=== PATIENT | female | born 1995 ===

== ENCOUNTER 2017-06-01 10:42 | Inpatient (IN) | payer BC ==
[2017-06-01] MEDS ORDERED: Sodium Chloride 0.9% 1,000 ML IV ONE ×2 (11:15→14:35)
[2017-06-01 11:37] LABS: BASO # 0.1 K/uL (0.0-0.2); BASO % 0.3 % (0.0-2.0); EOS # 0.1 K/uL (0.0-0.7); EOS % 0.7 % (0.0-4.0); HEMOGLOBIN 10.4 g/dL (11.0-16.0); LYMPH # 0.9 K/uL (1.0-4.3); MEAN CELL VOLUME 78.2 fL (81.0-99.0); MEAN CORPUSCULAR HEMOGLOBIN 26.4 pg (27.0-31.0); MEAN CORPUSCULAR HGB CONC 33.7 g/dL (33.0-37.0); MEAN PLATELET VOLUME 9.4 fL (7.2-11.7); MONO # 1.1 K/uL (0.0-0.8); NEUT # 19.3 K/uL (1.8-7.0); PLATELET COUNT 253 K/uL (130-400); RBC 3.94 Mil/uL (3.80-5.20); RED CELL DISTRIBUTION WIDTH 16.3 % (11.5-14.5); WHITE BLOOD COUNT 21.5 K/uL (4.8-10.8)
[2017-06-01 11:40] LABS: HCG,QUALITATIVE URINE NEGATIVE (NEGATIVE)
[2017-06-01] MEDS ORDERED: Sodium Chloride 0.9% 1,000 ML ONE ×2 (11:47→14:50)
[2017-06-01 11:53] LABS: ALB/GLOB RATIO 1.2 (1.0-2.1); ALT/SGPT 12 U/L (9-52); AST/SGOT 17 U/L (14-36); BLOOD UREA NITROGEN 8 mg/dL (7-17); CALCIUM 8.5 mg/dl (8.6-10.4); GFR AFRICAN-AMERICAN > 60; GFR NON-AFRICAN AMERICAN > 60; LIPASE 90 U/L (23-300)
[2017-06-01 11:54] LABS: SQUAMOUS EPITHIAL 11 /hpf (0-5); URINE BILIRUBIN NEGATIVE (NEGATIVE); URINE BLOOD NEGATIVE (NEGATIVE); URINE CLARITY Hazy (Clear); URINE COLOR Yellow (YELLOW); URINE GLUCOSE (UA) NORMAL (Normal); URINE LEUKOCYTE ESTERASE NEG Leu/uL (Negative); URINE NITRATE NEGATIVE (NEGATIVE); URINE PROTEIN NEGATIVE (NEGATIVE); URINE UROBILINOGEN NORMAL mg/dL (0.2-1.0)
[2017-06-01 11:57] LABS: ANISOCYTOSIS SLIGHT; BANDS 4 % (0-2); EOSINOPHIL 1 % (0-4); HYPOCHROMIC SLIGHT; LYMPHOCYTE 5 % (20-40); MICROCYTOSIS SLIGHT; MONOCYTE 6 % (0-10); NEUTROPHIL 84 % (50-75); TOTAL CELLS COUNTED 100
[2017-06-01 11:59] LABS: LARGE PLATELETS PRESENT
[2017-06-01 12:31] LABS: PLATELET ESTIMATE NORMAL (NORMAL)
--- NOTE | 2017-06-01 13:11 | C.PDOC ---
History Of Present Illness 30-year-old female, presents to the emergency department with complaints of lower abdominal pain that is associated with non-bloody/non-bilious diarrhea and chills x4 days. Patient notes she was seen in [place] ED three days ago, where she was diagnosed with UTI. Patient denies fevers, back pain, dizziness, nausea/vomiting, or any other associated symptoms. No other complaints at this time. Time Seen by Provider: 06/01/17 11:03 Chief Complaint (Nursing): Abdominal Pain History Per: Patient History/Exam Limitations: no limitations Onset/Duration Of Symptoms: Days Current Symptoms Are (Timing): Still Present Severity: Moderate Past Medical History Reviewed: Historical Data, Nursing Documentation, Vital Signs Vital Signs: Last Vital Signs Temp 98.6 F 06/01/17 18:04 Pulse 101 H 06/01/17 18:04 Resp 18 06/01/17 18:04 BP 102/68 06/01/17 18:04 Pulse Ox 100 06/01/17 18:51 - [facility] Procedures INJECT/INFUSE NEC (08/05/13) Family History: States: No Known Family Hx - Social History Hx Tobacco Use: No Hx Alcohol Use: No Hx Substance Use: Yes (Marijuana weekly last use yesterday) - Immunization History Hx Tetanus Toxoid Vaccination: No Hx Influenza Vaccination: Yes Hx Pneumococcal Vaccination: No Review Of Systems Except As Marked, All Systems Reviewed And Found Negative. Constitutional: Positive for: Chills. Negative for: Fever Cardiovascular: Negative for: Chest Pain Respiratory: Negative for: Shortness of Breath Gastrointestinal: Positive for: Abdominal Pain, Diarrhea. Negative for: Vomiting Genitourinary: Negative for: Dysuria, Frequency, Vaginal Discharge, Vaginal Bleeding Musculoskeletal: Negative for: Back Pain Physical Exam - Physical Exam Appears: Non-toxic, No Acute Distress Skin: Warm, Dry, No Rash Head: Atraumatic, Normacephalic Eye(s): bilateral: Normal Inspection, PERRL, EOMI Nose: Normal Oral Mucosa: Moist Lips: Normal Appearing Neck: Normal ROM, Supple Lymphatic: Normal Exam Chest: Symmetrical, No Tenderness Cardiovascular: Rhythm Regular, No Friction Rub, No Murmur Respiratory: Normal Breath Sounds, No Accessory Muscle Use Gastrointestinal/Abdominal: Bowel Sounds (active), Soft, Tenderness (mild Lower tenderness), No Guarding, No Hernia Back: Normal Inspection, No CVA Tenderness Extremity: Normal ROM, No Swelling Neurological/Psych: Oriented x3, Normal Speech, Normal Motor Gait: Steady ED Course And Treatment - Laboratory Results Result Diagrams: 06/01/17 11:31 06/01/17 11:31 O2 Sat by Pulse Oximetry: 100 (RA) Pulse Ox Interpretation: Normal Medical Decision Making Medical Decision Making: Plan: * CMP, Lipase * CBC * Pepcid, K-Chloride, IVF, Zofran * HCG/UA * CT Abd/Pel * Reassess and Disposition On re-exam, the patient states only mild improvement. but patient developed slight fever. Patient has hypokalemia and dehydration. The case was discussed with Dr. Yi (covering for Dr. Tom Olsen) agrees to admit the patient for colitis. Disposition - Disposition Disposition: HOSPITALIZED Disposition Time: 15:30 Condition: FAIR - Clinical Impression Clinical Impression: Dehydration, Colitis, Diarrhea, Leukocytosis
[2017-06-01] MEDS ORDERED: Iodixanol 320 mg/ml 150 ml Bottle IV ONE (13:23)
--- NOTE | 2017-06-01 15:12 | CT ---
CT abdomen and pelvis History: Diarrhea. Colitis. Comparison: None available. Technique: Multiple contiguous axial images were performed through the abdomen and pelvis with the use of intravenous contrast. Subsequently, sagittal and coronal reformatted images were obtained. This CT exam was performed using one or more of the following dose reduction techniques: Automated exposure control, adjustment of the mA and/or kV according to patient size, and/or use of iterative reconstruction technique. Findings: 8 millimeter nodular density seen at the medial aspect of the right middle lobe. Mild bibasilar atelectasis. No pleural or pericardial effusion. Liver and gallbladder are preserved. Spleen is preserved. Adrenal glands are preserved. Pancreas is preserved. Upper abdominal bowel is preserved. Right kidney: No calculi or hydronephrosis. Left Kidney: No calculi or hydronephrosis. Urinary bladder is preserved. Heterogeneous uterus and endometrium. Small amount of free fluid within the posterior pelvic cul-de-sac. Prominent distended and tortuous rectum and mid to distal sigmoid colon with associated wall thickening and enhancement consistent with a colitis/proctitis. Additional mild colonic wall thickening seen at the level of the distal ascending colon and proximal right transverse colon which may represent a mild colitis. Appendix appears grossly preserved. Few shotty para-aortic and inguinal nodes. Few shotty mesenteric lymph nodes. Degenerative changes in the spine with sclerosis of the bilateral SI joints. Impression: Prominent distended and tortuous rectum and mid to distal sigmoid colon with associated wall thickening and enhancement consistent with a colitis/proctitis. Additional mild colonic wall thickening seen at the level of the distal ascending colon and proximal right transverse colon which may represent a mild colitis. Small amount of free fluid within the posterior pelvic cul-de-sac.
[2017-06-01] MEDS ORDERED: Potassium Chloride 20 mEq ER Tab PO STA (15:42)
[2017-06-01] MEDS ORDERED: Potassium Chloride 20 mEq ER Tab PO ONE (15:55)
[2017-06-01] MEDS ORDERED: Ciprofloxacin 400mg/200ml D5W 400 MG/200 ML BAG IV STA (16:12)
[2017-06-01] MEDS ORDERED: Ciprofloxacin 400mg/200ml D5W 400 MG/200 ML BAG IVPB ONE (17:01)
[2017-06-01] MEDS ORDERED: metroNIDAZOLE IV 500 mg/100 ml 500 MG/100 ML BAG ONE (17:01)
[2017-06-01] MEDS: metroNIDAZOLE IV 500 mg/100 ml 500 MG/100 ML BAG IV SCH (17:06)
--- NOTE | 2017-06-01 19:54 | CP.PCM.HP ---
History of Present Illness - History of Present Illness History of Present Illness: 30-year-old female, presents to the emergency department with complaints of lower abdominal pain that is associated with non-bloody/non-bilious diarrhea and chills x4 days. Patient notes she was seen in [place] ED three days ago, where she was diagnosed with UTI. Patient denies fevers, back pain, dizziness, nausea/vomiting, or any other associated symptoms. CT OF ABDOMEN SHOWS LOWER COLON COLITIS IST WEEK OF MAY . PT HAD SMALL ABSCESS ON INNER THIGH AND WAS SE[place] [facility] [place] RX PO AB 4 TIMES ADAY . SINCE THEN PT HAS DIARRHEA Present on Admission - Present on Admission Any Indicators Present on Admission: No Review of Systems - Constitutional Constitutional: Anorexia, Chills, Malaise - EENT Eyes: absent: As Per HPI, Blind Spots, Blurred Vision, Change in Vision, Decreased Night Vision, Diplopia, Discharge, Dry Eye, Exophthalmos, Floaters, Irritation, Itchy Eyes, Loss of Peripheral Vision, Pain, Photophobia, Requires Corrective Lenses, Sees Flashes, Spots in Vision, Tunnel Vision, Other Visual Disturbances, Loss of Vision, Other Ears: absent: As Per HPI, Decreased Hearing, Ear Discharge, Ear Pain, Tinnitus, Abnormal Hearing, Disequilibrium, Dizziness, Other Nose/Mouth/Throat: absent: As Per HPI, Epistaxis, Nasal Congestion, Nasal Discharge, Nasal Obstruction, Nasal Trauma, Nose Pain, Post Nasal Drip, Sinus Pain, Sinus Pressure, Bleeding Gums, Change in Voice, Dental Pain, Dry Mouth, Dysphagia, Halitosis, Hoarsness, Lip Swelling, Mouth Lesions, Mouth Pain, Odynophagia, Sore Throat, Throat Swelling, Tongue Swelling, Facial Pain, Neck Pain, Neck Mass, Other - Cardiovascular Cardiovascular: absent: As Per HPI, Acrocyanosis, Chest Pain, Chest Pain at Rest , Chest Pain with Activity, Claudication, Diaphoresis, Dyspnea, Dyspnea on Exertion, Edema, Irregular Heart Rhythm, Pain Radiating to Arm/Neck/Jaw, Leg Edema, Leg Ulcers, Lightheadedness, Orthopnea, Palpitations, Paroxysmal Nocturnal Dyspnea, Pedal Edema, Radiating Pain, Rapid Heart Rate, Slow Heart Rate, Syncope, Other - Respiratory Respiratory: absent: As Per HPI, Cough, Dyspnea, Hemoptysis, Dyspnea on Exertion , Wheezing, Snoring, Stridor, Pain on Inspiration, Chest Congestion, Excessive Mucous Production, Change in Mucous Color, Pain with Coughing, Other - Gastrointestinal Gastrointestinal: Diarrhea, Nausea, Vomiting. absent: Coffee Ground Emesis, Constipation, Hematemesis, Hematochezia, Melena, Temesmus - Genitourinary Genitourinary: Dysuria. absent: As Per HPI, Change in Urinary Stream, Difficulty Urinating, Flank Pain, Hematuria, Pyuria, Nocturia, Urinary Incontinence, Urinary Frequency, Urinary Hesitance, Urinary Urgency, Voiding Freq/Small Amts, Freq UTI, Hx Renal/Bladder Calculi, Hx /Renal Surgery, Bladder Distension, Other - Musculoskeletal Musculoskeletal: absent: As Per HPI, Abnormal Gait, Arthralgias, Atrophy, Back Pain, Deformity, Joint Swelling, Limited Range of Motion, Loss of Height, Muscle Cramps, Muscle Weakness, Myalgias, Neck Pain, Numbness, Radiating Pain into Limb, Stiffness, Tingling, Other - Neurological Neurological: absent: As Per HPI, Abnormal Gait, Abnormal Hearing, Abnormal Movements, Abnormal Speech, Behavioral Changes, Burning Sensations, Confusion, Convulsions, Disequilibrium, Dizziness, Numbness, Focal Weakness, Frequent Falls , Headaches, Lack of Coordination, Loss of Vision, Memory Loss, Paresthesias, Radicular Pain, Restless Legs, Sensory Deficit, Syncope, Tingling, Tremor, Vertigo, Weakness, Other Visual Disturbances, Other - Hematologic/Lymphatic Hematologic: absent: As Per HPI, Easy Bleeding, Easy Bruising, Lymphadenopathy, Other Past Patient History - Past Social History Smoking Status: Never Smoked - MUSCULOSKELETAL/RHEUMATOLOGICAL Hx Falls: No - GASTROINTESTINAL Hx Colitis: Yes Hx Diarrhea: Yes - GENITOURINARY/GYNECOLOGICAL Hx Urinary Tract Infection: Yes - PSYCHIATRIC Hx Substance Use: No - SURGICAL HISTORY Hx Surgeries: No - ANESTHESIA Hx Anesthesia: No Hx Anesthesia Reactions: No Hx Malignant Hyperthermia: No Has any member of the family had a problem w/ anesthesia?: No Meds Allergies/Adverse Reactions: Allergies Allergy/AdvReac Type Severity Reaction Status Date / Time No Known Allergies Allergy Verified 06/01/17 10:47 Physical Exam - Head Exam Head Exam: ATRAUMATIC - Eye Exam Eye Exam: EOMI, Normal appearance, PERRL - ENT Exam ENT Exam: Mucous Membranes Moist, Normal Exam - Neck Exam Neck exam: Positive for: Normal Inspection - Respiratory Exam Respiratory Exam: Clear to Auscultation Bilateral, NORMAL BREATHING PATTERN - Cardiovascular Exam Cardiovascular Exam: REGULAR RHYTHM - GI/Abdominal Exam GI & Abdominal Exam: Hyperactive Bowel Sounds, Soft. absent: Firm, Guarding, Tenderness Results - Vital Signs Recent Vital Signs: Last Vital Signs Temp 98.6 F 06/01/17 18:04 Pulse 101 H 06/01/17 18:04 Resp 18 06/01/17 18:04 BP 102/68 06/01/17 18:04 Pulse Ox 98 06/01/17 19:11 - Labs Result Diagrams: 06/02/17 08:16 06/02/17 08:16 Labs: Laboratory Results - last 24 hr 06/01/17 06/01/17 06/01/17 11:31 11:31 11:31 WBC 21.5 H RBC 3.94 Hgb 10.4 L Hct 30.8 L MCV 78.2 L MCH 26.4 L MCHC 33.7 RDW 16.3 H Plt Count 253 MPV 9.4 Neut % (Auto) 90.0 H Lymph % (Auto) 4.0 L [place] % (Auto) 5.0 Eos % (Auto) 0.7 Baso % (Auto) 0.3 Neut # 19.3 H Lymph # 0.9 L [place] # 1.1 H Eos # 0.1 Baso # 0.1 Neutrophils % (Manual) 84 H Band Neutrophils % 4 H Lymphocytes % (Manual) 5 L Monocytes % (Manual) 6 Eosinophils % (Manual) 1 Platelet Estimate Normal Large Platelets Present Hypochromasia (manual) Slight Anisocytosis (manual) Slight Microcytosis (manual) Slight Sodium 134 Potassium 2.7 L Chloride 101 Carbon Dioxide 23 Anion Gap 13 BUN 8 Creatinine 0.7 Est GFR ( Amer) > 60 Est GFR (Non-Af Amer) > 60 Random Glucose 142 H Calcium 8.5 L Total Bilirubin 0.5 AST 17 ALT 12 Alkaline Phosphatase 54 Total Protein 7.2 Albumin 4.0 Globulin 3.2 Albumin/Globulin Ratio 1.2 Lipase 90 Urine Color Yellow Urine Clarity Hazy Urine pH 5.0 Ur Specific [place] 1.024 Urine Protein Negative Urine Glucose (UA) Normal Urine Ketones Trace Urine Blood Negative Urine Nitrate Negative Urine Bilirubin Negative Urine Urobilinogen Normal Ur Leukocyte Esterase Neg Urine WBC (Auto) 5 Urine RBC (Auto) 3 Ur Squamous Epith Cells 11 H Urine HCG, Qual Negative Assessment & Plan (1) C. difficile colitis Status: Acute Comment: RECENT INGESTION OAB FOR UTI. CHECK C. DIFF (2) Dehydration Status: Acute (3) Diarrhea Status: Acute
--- NOTE | 2017-06-01 20:33 | CP.PCM.CON ---
History of Present Illness - History of Present Illness History of Present Illness: INFECTIOUS DISEASE CONSULT; HPI; 30-year-old female, presents to the emergency department with complaints of lower abdominal pain that is associated with non-bloody/non-bilious diarrhea and chills x4 days. Patient notes she was seen in [place] ED three days ago, where she was diagnosed with UTI AND GIVEN PYRIDIUM FOR 2 DAYS BUT SHE WAS UNABLE TO TOLERATE IT AND STOPPED TAKING IT. PATIENT DENIES ANY FEVERS BUT COMPLAINS OF CHILLS THIS A.M.AND WAS FOUND TO HAVE A TEMPERATURE OF 100. PATIENT DENIES BACK PAIN, DIZZINESS, NAUSEA/ VOMITING OR ANY ASSOCIATED SYMPTOMS. PATIENT ADMITS TO 2-3 LOOSE BMS.PATIENT DENIES ANY DYSURIA, FREQUENCY OR HEMATURIA. DENIES HISTORY OF KIDNEY STONES OR RECURRENT UTIS. PATIENT ALSO DENIES ANY VAGINAL DISCHARGE AND STATES HER PERIODS ARE REGULAR. CT OF ABDOMEN SHOWS DISTAL ASCENDING COLON/PROXIMAL RIGHT TRANSVERSE COLON COLITIS-WITH DISTENDING TORTUOUS RECTUM AND DISTAL SIGMOID COLON WITH WALL THICKENING AND ENHANCEMENT CONSISTENT WITH COLITIS/ PROCTITIS PATIENT ALSO GIVES HISTORY OF AN ABSCESS ON THE LEG FOR WHICH SHE WAS TREATED WITH A COURSE OF ANTIBIOTICS IN MAY 2017. SINCE THEN SHE HAS BEEN HAVING INTERMITTENT DIARRHEA. PATIENT ALSO HAS A CHILD 2 YEARS OLD WHICH RECENTLY HAD UPPER RESPIRATORY TRACT INFECTION. PAST MEDICAL HISTORY; UNREMARKABLE. Family History: States: No Known Family Hx - Social History PATIENT WORKS IN THE [employer] AND LIVES WITH HER BOYFRIEND WHO IS HEALTHY. Hx Tobacco Use: No Hx Alcohol Use: No Hx Substance Use: Yes (Marijuana weekly last use yesterday) - Immunization History Hx Tetanus Toxoid Vaccination: No Hx Influenza Vaccination: Yes Hx Pneumococcal Vaccination: No ALLERGY; NKA Review of Systems - Constitutional Constitutional: Chills, Fever - EENT Eyes: absent: Change in Vision, Floaters Nose/Mouth/Throat: absent: Nasal Congestion, Dry Mouth - Cardiovascular Cardiovascular: absent: Chest Pain, Dyspnea - Respiratory Respiratory: absent: Cough - Gastrointestinal Gastrointestinal: Abdominal Pain, Diarrhea. absent: Melena, Nausea, Vomiting - Genitourinary Genitourinary: absent: Dysuria, Hematuria, Pyuria, Freq UTI - Reproductive: Female Reproductive:Female: absent: Pelvic Pain, Vaginal Discharge, Vaginal Odor, Vaginal Pruritis - Neurological Neurological: absent: Dizziness, Headaches - Hematologic/Lymphatic Hematologic: As Per HPI. absent: Lymphadenopathy Past Patient History - Past Social History Smoking Status: Never Smoked - MUSCULOSKELETAL/RHEUMATOLOGICAL Hx Falls: No - GASTROINTESTINAL Hx Colitis: Yes Hx Diarrhea: Yes - GENITOURINARY/GYNECOLOGICAL Hx Urinary Tract Infection: Yes - PSYCHIATRIC Hx Substance Use: No - SURGICAL HISTORY Hx Surgeries: No - ANESTHESIA Hx Anesthesia: No Hx Anesthesia Reactions: No Hx Malignant Hyperthermia: No Has any member of the family had a problem w/ anesthesia?: No Meds Allergies/Adverse Reactions: Allergies Allergy/AdvReac Type Severity Reaction Status Date / Time No Known Allergies Allergy Verified 06/01/17 10:47 - Medications Medications: Current Medications Metronidazole (Flagyl) 500 mg in 100 mls @ 100 mls/hr IV STAT [facility] Last Admin: 06/01/17 17:06 Dose: 100 mls/hr Dextrose/Sodium Chloride (Dextrose 5%/0.45% Ns 1000 Ml) 1,000 mls @ 100 mls/hr IV .Q10H [facility] Pneumococcal Polyvalent Vaccine (Pneumovax 23 Vaccine) 0.5 ml IM .ONCE ONE Stop: 06/03/17 10:01 Physical Exam - Head Exam Head Exam: NORMAL INSPECTION - Eye Exam Eye Exam: EOMI, PERRL - ENT Exam ENT Exam: Mucous Membranes Moist - Neck Exam Neck exam: Positive for: Normal Inspection - Respiratory Exam Respiratory Exam: Clear to Auscultation Bilateral - Cardiovascular Exam Cardiovascular Exam: Tachycardia, REGULAR RHYTHM, +S1, +S2 - GI/Abdominal Exam GI & Abdominal Exam: Normal Bowel Sounds, Soft. absent: Tenderness (MILD DISCOMFORT LEFT LOWER QUADRANT.) - Extremities Exam Extremities exam: Positive for: pedal pulses present. Negative for: calf tenderness, pedal edema - Neurological Exam Neurological exam: Alert, CN II-XII Intact, Oriented x3, Reflexes Normal - Psychiatric Exam Psychiatric exam: Normal Mood - Skin Skin Exam: Normal Color, Warm Results - Vital Signs Recent Vital Signs: Last Vital Signs Temp 98.6 F 06/01/17 18:04 Pulse 101 H 06/01/17 18:04 Resp 18 06/01/17 18:04 BP 102/68 06/01/17 18:04 Pulse Ox 98 06/01/17 19:11 - Labs Result Diagrams: 06/01/17 11:31 06/01/17 11:31 Labs: Laboratory Results - last 24 hr 06/01/17 06/01/17 06/01/17 11:31 11:31 11:31 WBC 21.5 H RBC 3.94 Hgb 10.4 L Hct 30.8 L MCV 78.2 L MCH 26.4 L MCHC 33.7 RDW 16.3 H Plt Count 253 MPV 9.4 Neut % (Auto) 90.0 H Lymph % (Auto) 4.0 L [place] % (Auto) 5.0 Eos % (Auto) 0.7 Baso % (Auto) 0.3 Neut # 19.3 H Lymph # 0.9 L [place] # 1.1 H Eos # 0.1 Baso # 0.1 Neutrophils % (Manual) 84 H Band Neutrophils % 4 H Lymphocytes % (Manual) 5 L Monocytes % (Manual) 6 Eosinophils % (Manual) 1 Platelet Estimate Normal Large Platelets Present Hypochromasia (manual) Slight Anisocytosis (manual) Slight Microcytosis (manual) Slight Sodium 134 Potassium 2.7 L Chloride 101 Carbon Dioxide 23 Anion Gap 13 BUN 8 Creatinine 0.7 Est GFR ( Amer) > 60 Est GFR (Non-Af Amer) > 60 Random Glucose 142 H Calcium 8.5 L Total Bilirubin 0.5 AST 17 ALT 12 Alkaline Phosphatase 54 Total Protein 7.2 Albumin 4.0 Globulin 3.2 Albumin/Globulin Ratio 1.2 Lipase 90 Urine Color Yellow Urine Clarity Hazy Urine pH 5.0 Ur Specific [place] 1.024 Urine Protein Negative Urine Glucose (UA) Normal Urine Ketones Trace Urine Blood Negative Urine Nitrate Negative Urine Bilirubin Negative Urine Urobilinogen Normal Ur Leukocyte Esterase Neg Urine WBC (Auto) 5 Urine RBC (Auto) 3 Ur Squamous Epith Cells 11 H Urine HCG, Qual Negative - Imaging and Cardiology CT scan - abdomen AND PELVIS AND CHEST WITH iv CONTRAST Additional comment: SEE FULL REPORT. Assessment & Plan (1) Diarrhea Status: Acute (2) Colitis Status: Acute (3) Dehydration Status: Acute (4) Leukocytosis Status: Acute - Assessment and Plan (Free Text) Plan: PLAN; PANCULTURES STOOL FOR C. DIFFICILE TOXIN A AND B. STOOLS FOR CULTURE STOOLS FOR GIARDIA ANTIGEN STOOLS FOR CRYPTOSPORIDIOSIS. HIV 1 AND 2 ANTIBODY SCREEN. STOOLS FOR OVA AND PARASITES X2. CONTINUE iv fLAGYL 500 MG EVERY 8 HOURLY .06/01/17. ADD PO VANCOMYCIN 250 MG BY MOUTH 4 TIMES A DAY. ENTERIC /CONTACT PRECAUTIONS. WILL FOLLOW ALONG WITH YOU AND MAKE RECOMMENDATIONS NECESSARY.
[2017-06-01] MEDS: Dextrose 5%/0.45% NS 1,000 ML IV SCH (20:40)
[2017-06-02] MEDS: metroNIDAZOLE IV 500 mg/100 ml 500 MG/100 ML BAG IV SCH (05:45)
[2017-06-02] MEDS: Dextrose 5%/0.45% NS 1,000 ML IV SCH (05:49)
[2017-06-02] MEDS: metroNIDAZOLE IV 500 mg/100 ml 500 MG/100 ML BAG IVPB SCH ×3 (05:50→21:22)
[2017-06-02 08:25] LABS: BASO % 0.4 % (0.0-2.0); EOS # 0.3 K/uL (0.0-0.7); EOS % 2.9 % (0.0-4.0); HEMOGLOBIN 9.5 g/dL (11.0-16.0); LYMPH # 1.3 K/uL (1.0-4.3); LYMPH % 14.7 % (20.0-40.0); MEAN CELL VOLUME 78.8 fL (81.0-99.0); MEAN CORPUSCULAR HEMOGLOBIN 26.2 pg (27.0-31.0); MEAN CORPUSCULAR HGB CONC 33.3 g/dL (33.0-37.0); MEAN PLATELET VOLUME 9.7 fL (7.2-11.7); MONO # 0.7 K/uL (0.0-0.8); MONO % 7.3 % (0.0-10.0); NEUT # 6.8 K/uL (1.8-7.0); NEUT % 74.7 % (50.0-75.0); RBC 3.63 Mil/uL (3.80-5.20); RED CELL DISTRIBUTION WIDTH 15.9 % (11.5-14.5)
[2017-06-02 08:32] LABS: WHITE BLOOD COUNT 9.1 K/uL (4.8-10.8)
[2017-06-02 08:47] LABS: ALB/GLOB RATIO 1.1 (1.0-2.1); ALBUMIN 3.1 g/dL (3.5-5.0); ALT/SGPT 19 U/L (9-52); AST/SGOT 17 U/L (14-36); BLOOD UREA NITROGEN 2 mg/dL (7-17); CALCIUM 7.6 mg/dl (8.6-10.4); GFR AFRICAN-AMERICAN > 60; GFR NON-AFRICAN AMERICAN > 60
[2017-06-02] MEDS: Vancomycin 125 MG/5 ML SOLN (ORAL/RECTAL) PO SCH ×4 (09:36→21:22)
[2017-06-02] MEDS: Potassium Chl 40 mEq in D5-1/2 1,000 ML IV SCH ×2 (10:59→21:23)
--- NOTE | 2017-06-02 14:53 | CP.PCM.PN ---
Subjective - Date & Time of Evaluation Date of Evaluation: 06/02/17 Time of Evaluation: 14:51 - Subjective Subjective: AFEBRILE C. DIFF POS ON PO VANCO+ IV FLAGYL K LOW 2.8 , NO IV K WAS GIVEN INSPITE OF ORDERS LAST NITE D/W MOTHER IN DETAIL Objective - Vital Signs/Intake and Output Vital Signs (last 24 hours): Temp Pulse Resp BP Pulse Ox 97.8 F 88 20 111/75 96 06/02/17 09:00 06/02/17 09:00 06/02/17 09:00 06/02/17 09:00 06/02/17 09:00 Intake and Output: 06/02/17 06/02/17 11:59 23:59 Intake Total 900 Balance 900 - Medications Medications: Current Medications Metronidazole (Flagyl) 500 mg in 100 mls @ 100 mls/hr IVPB Q8 [facility] Last Admin: 06/02/17 14:19 Dose: 100 mls/hr Potassium Chloride/Dextrose/Sod Cl (Potassium Chl 40 Meq In D5-1/2ns) 1,000 mls @ 100 mls/hr IV .Q10H [facility] Last Admin: 06/02/17 10:59 Dose: 100 mls/hr Pneumococcal Polyvalent Vaccine (Pneumovax 23 Vaccine) 0.5 ml IM .ONCE ONE Stop: 06/03/17 10:01 Vancomycin HCl (Vancocin (Oral Or Rectal Use)) 250 mg PO QID [facility] Last Admin: 06/02/17 14:19 Dose: 250 mg - Labs Labs: 06/02/17 08:16 06/02/17 08:16 Assessment and Plan (1) C. difficile colitis Status: Acute (2) Dehydration Status: Acute (3) Diarrhea Status: Acute
--- NOTE | 2017-06-02 22:16 | CP.PCM.PN ---
Subjective - Date & Time of Evaluation Date of Evaluation: 06/02/17 Time of Evaluation: 22:16 - Subjective Subjective: tmax 100, vs as noted . awake alert, Still has diarrhea labs reviewed Improving leukocytosis. STOOL C . DIFFICILE POSITIVE STOOLS POSITIVE FOR blood STOOLS POSITIVE FOR LEUKOCYTES. Objective - Vital Signs/Intake and Output Vital Signs (last 24 hours): Temp Pulse Resp BP Pulse Ox 97.1 F L 68 20 111/72 100 06/02/17 16:00 06/02/17 16:00 06/02/17 16:00 06/02/17 16:00 06/02/17 16:00 Intake and Output: 06/02/17 06/03/17 18:59 06:59 Intake Total 1280 Balance 1280 - Medications Medications: Current Medications Metronidazole (Flagyl) 500 mg in 100 mls @ 100 mls/hr IVPB Q8 [facility] Last Admin: 06/02/17 21:22 Dose: 100 mls/hr Potassium Chloride/Dextrose/Sod Cl (Potassium Chl 40 Meq In D5-1/2ns) 1,000 mls @ 100 mls/hr IV .Q10H [facility] Last Admin: 06/02/17 21:23 Dose: 100 mls/hr Pneumococcal Polyvalent Vaccine (Pneumovax 23 Vaccine) 0.5 ml IM .ONCE ONE Stop: 06/03/17 10:01 Vancomycin HCl (Vancocin (Oral Or Rectal Use)) 250 mg PO QID [facility] Last Admin: 06/02/17 21:22 Dose: 250 mg - Labs Labs: 06/02/17 08:16 06/02/17 08:16 - Constitutional Appears: No Acute Distress - Head Exam Head Exam: NORMAL INSPECTION - Eye Exam Eye Exam: EOMI, PERRL - ENT Exam ENT Exam: Normal Oropharynx - Neck Exam Neck Exam: Normal Inspection - Respiratory Exam Respiratory Exam: Clear to Ausculation Bilateral - Cardiovascular Exam Cardiovascular Exam: REGULAR RHYTHM, +S1, +S2 - GI/Abdominal Exam GI & Abdominal Exam: Soft, Tenderness (MILD TENDERNESS LEFT LOWER QUADRANT AND MIDABDOMEN.), Hypoactive Bowel Sounds. absent: Organomegaly - Extremities Exam Extremities Exam: Normal Capillary Refill. absent: Calf Tenderness, Pedal Edema - Neurological Exam Neurological Exam: Awake, CN II-XII Intact, Normal Gait, Oriented x3, Reflexes Normal - Psychiatric Exam Psychiatric exam: Normal Mood - Skin Skin Exam: Normal Color, Warm Assessment and Plan (1) Diarrhea associated with pseudomembranous colitis Status: Acute (2) Diarrhea Status: Acute (3) Leukocytosis Status: Acute (4) Dehydration Status: Acute - Assessment and Plan (Free Text) Plan: CONTINUE iv fLAGYL 500 MG EVERY 8 HOURLY .06/01/17. ADD PO VANCOMYCIN 250 MG BY MOUTH 4 TIMES A DAY. ENTERIC /CONTACT PRECAUTIONS.
[2017-06-03] MEDS: metroNIDAZOLE IV 500 mg/100 ml 500 MG/100 ML BAG IVPB SCH ×3 (05:00→21:51)
[2017-06-03 07:39] LABS: BASO % 0.5 % (0.0-2.0); EOS # 0.3 K/uL (0.0-0.7); EOS % 6.7 % (0.0-4.0); HEMOGLOBIN 9.5 g/dL (11.0-16.0); LYMPH # 1.6 K/uL (1.0-4.3); LYMPH % 32.9 % (20.0-40.0); MEAN CORPUSCULAR HEMOGLOBIN 26.2 pg (27.0-31.0); MEAN CORPUSCULAR HGB CONC 33.1 g/dL (33.0-37.0); MEAN PLATELET VOLUME 9.6 fL (7.2-11.7); MONO # 0.5 K/uL (0.0-0.8); MONO % 10.1 % (0.0-10.0); NEUT # 2.5 K/uL (1.8-7.0); NEUT % 49.8 % (50.0-75.0); NRBC % 0.1 % (0.0-2.0); RBC 3.64 Mil/uL (3.80-5.20); WHITE BLOOD COUNT 4.9 K/uL (4.8-10.8)
[2017-06-03 08:44] LABS: ALB/GLOB RATIO 1.1 (1.0-2.1); ALBUMIN 3.1 g/dL (3.5-5.0); ALT/SGPT 23 U/L (9-52); AST/SGOT 27 U/L (14-36); BLOOD UREA NITROGEN < 2 mg/dL (7-17); CALCIUM 8.2 mg/dl (8.6-10.4); GFR AFRICAN-AMERICAN > 60; GFR NON-AFRICAN AMERICAN > 60
[2017-06-03] MEDS ORDERED: Pneumococcal 23-Valent Vaccine IM ONE (10:00)
[2017-06-03] MEDS: Vancomycin 125 MG/5 ML SOLN (ORAL/RECTAL) PO SCH ×4 (10:02→21:49)
[2017-06-03] MEDS: Potassium Chl 40 mEq in D5-1/2 1,000 ML IV SCH ×3 (10:23→21:50)
--- NOTE | 2017-06-03 13:20 | CP.PCM.PN ---
Subjective - Date & Time of Evaluation Date of Evaluation: 06/03/17 Time of Evaluation: 13:19 - Subjective Subjective: AFEBRILE C. DIFF POS ON PO VANCO+ IV FLAGYL LESS DIARRHEA D/W ID PLAN OF CARE Objective - Vital Signs/Intake and Output Vital Signs (last 24 hours): Temp Pulse Resp BP Pulse Ox 97.9 F 87 20 120/83 98 06/03/17 08:15 06/03/17 08:15 06/03/17 08:15 06/03/17 08:15 06/03/17 08:15 - Medications Medications: Current Medications Metronidazole (Flagyl) 500 mg in 100 mls @ 100 mls/hr IVPB Q8 [facility] Last Admin: 06/03/17 05:00 Dose: 100 mls/hr Potassium Chloride/Dextrose/Sod Cl (Potassium Chl 40 Meq In D5-1/2ns) 1,000 mls @ 100 mls/hr IV .Q10H [facility] Last Admin: 06/03/17 10:23 Dose: 100 mls/hr Vancomycin HCl (Vancocin (Oral Or Rectal Use)) 250 mg PO QID [facility] Last Admin: 06/03/17 10:02 Dose: 250 mg - Labs Labs: 06/03/17 07:27 06/03/17 07:27 Assessment and Plan (1) C. difficile colitis Status: Acute (2) Dehydration Status: Acute (3) Diarrhea Status: Acute
--- NOTE | 2017-06-03 17:56 | CP.PCM.PN ---
Subjective - Date & Time of Evaluation Date of Evaluation: 06/03/17 Time of Evaluation: 17:56 - Subjective Subjective: tmax 99.8 awake alert, Still has diarrhea labs reviewed BLOOD CULTURES -VE uRINE CULTURES NEGATIVE. Improving leukocytosis. STOOL C . DIFFICILE POSITIVE STOOLS POSITIVE FOR blood STOOLS POSITIVE FOR LEUKOCYTES. on iv flagyl 500mg iv every 8 hourly on po vancomycin 250 mg by mouth 4 times a day. Objective - Vital Signs/Intake and Output Vital Signs (last 24 hours): Temp Pulse Resp BP Pulse Ox 99.8 F H 64 20 184/70 H 98 06/03/17 16:00 06/03/17 16:00 06/03/17 16:00 06/03/17 16:00 06/03/17 16:00 Intake and Output: 06/03/17 06/03/17 06:59 18:59 Intake Total 1000 1300 Balance 1000 1300 - Medications Medications: Current Medications Metronidazole (Flagyl) 500 mg in 100 mls @ 100 mls/hr IVPB Q8 [facility] Last Admin: 06/03/17 13:44 Dose: 100 mls/hr Potassium Chloride/Dextrose/Sod Cl (Potassium Chl 40 Meq In D5-1/2ns) 1,000 mls @ 100 mls/hr IV .Q10H [facility] Last Admin: 06/03/17 10:23 Dose: 100 mls/hr Vancomycin HCl (Vancocin (Oral Or Rectal Use)) 250 mg PO QID [facility] Last Admin: 06/03/17 13:45 Dose: 250 mg - Labs Labs: 06/03/17 07:27 06/03/17 07:27 - Constitutional Appears: No Acute Distress - Head Exam Head Exam: NORMAL INSPECTION - Eye Exam Eye Exam: EOMI, PERRL - ENT Exam ENT Exam: Normal Oropharynx - Respiratory Exam Respiratory Exam: Clear to Ausculation Bilateral - Cardiovascular Exam Cardiovascular Exam: REGULAR RHYTHM, +S1, +S2 - GI/Abdominal Exam GI & Abdominal Exam: Soft, Normal Bowel Sounds. absent: Tenderness, Rebound - Extremities Exam Extremities Exam: Normal Capillary Refill. absent: Calf Tenderness, Pedal Edema - Neurological Exam Neurological Exam: Alert, Awake, CN II-XII Intact, Oriented x3, Reflexes Normal - Skin Skin Exam: Normal Color, Warm Assessment and Plan (1) Diarrhea associated with pseudomembranous colitis Status: Acute (2) Diarrhea Status: Acute (3) Leukocytosis Status: Acute (4) Dehydration Status: Acute - Assessment and Plan (Free Text) Plan: CONTINUE iv fLAGYL 500 MG EVERY 8 HOURLY .06/01/17. ADD PO VANCOMYCIN 250 MG BY MOUTH 4 TIMES A DAY. If patient stable in a.m. Can DC IV Flagyl. Continue by mouth vancomycin 125 mg 4 times a day for 10 days. BACID 1 TABLET BY MOUTH AT BEDTIME FOR 10 DAYS. ENTERIC /CONTACT PRECAUTIONS.
[2017-06-04] MEDS: Potassium Chl 40 mEq in D5-1/2 1,000 ML IV SCH ×3 (03:45→12:12)
[2017-06-04] MEDS: metroNIDAZOLE IV 500 mg/100 ml 500 MG/100 ML BAG IVPB SCH (05:33)
[2017-06-04 08:12] VITALS: BP 116/77; PULSE 70; RESP 20; TEMP 98.5; O2SAT 98
[2017-06-04] MEDS: Vancomycin 125 MG/5 ML SOLN (ORAL/RECTAL) PO SCH (09:32)
--- NOTE | 2017-06-04 15:47 | CP.PCM.PN ---
Subjective - Date & Time of Evaluation Date of Evaluation: 06/04/17 Time of Evaluation: 11:00 - Subjective Subjective: Awake, alert, no diarrhea or abdominal pain. Objective - Vital Signs/Intake and Output Vital Signs (last 24 hours): Temp Pulse Resp BP Pulse Ox 98.5 F 70 20 116/77 98 06/04/17 08:00 06/04/17 08:00 06/04/17 08:00 06/04/17 08:00 06/04/17 08:00 Intake and Output: 06/04/17 06/04/17 06:59 18:59 Intake Total 2210 Balance 2210 - Labs Labs: 06/03/17 07:27 06/03/17 07:27 Assessment and Plan - Assessment and Plan (Free Text) Assessment: Patient is seen and examined. Alert and oriented x3, had one formed stool today. Discussed with DR Sandoval and DR Yi, plan to discharge home on vancomycin 125mg po qid for 10 days with bacid one daily. Advised contact precautions, to be followed up with PMD in 1 week.
[2017-06-04 18:20] LABS: SOURCE STOOL
== END 2017-06-04 12:41 | disposition home or self-care (01) | DRG 373 ==
LOC: C.ER 10:42 → C.9E 16:11 → C.3T 18:06 → OBSVTOIN 06-03 15:25
PROVIDERS: ADMIT Internal Medicine Cardiovascular Disease; ATTEND Internal Medicine Cardiovascular Disease
DX: A04.72 Enterocolitis due to Clostridium difficile, not specified as recurrent (principal); E86.0 Dehydration; Z87.440 Personal history of urinary (tract) infections